=== PATIENT | male | born 1970 | race Caucasian/White ===

== ENCOUNTER 2017-08-26 05:10 | Emergency (ER) | payer BC, OTHER ==
[~2017-08-26] VITALS: Ht 177.8 cm; Wt 65.8 kg
[2017-08-26 05:29] VITALS: BP 216/103
[2017-08-26] MEDS ORDERED: LIDOCAINE 1% / SOD BICARB 8.4% 20 ML VIAL. IJ ONE (05:30)
[2017-08-26] MEDS ORDERED: CLINDAMYCIN HCL 150 MG CAPSULE. PO ONE (05:30)
[2017-08-26] MEDS ORDERED: TETANUS AND DIPHTHERIA TOX/PF 0.5 ML DISP.SYRIN. VAX IM ONE (05:30)
[2017-08-26] MEDS ORDERED: CLIN300C8 PO (05:34)
--- NOTE | 2017-08-26 05:37 | PHYS DOC ---
Past Medical History Past Medical History: No Pertinent History Past Surgical History: No Surgical History Smoking: Cigarettes Social History Narrative: Lives with father Adult General Chief Complaint Chief Complaint: GROIN PAIN HPI HPI Patient is a 47 year old male who presents with tear to his left scrotum. He rolled out of bed and caught his left scrotum on a nail. It tore his scrotal sac. This occurred at 0500 am. Tetanus is not up to date. No significant pain. He has had a recent cold. No fever. No recent travel. No other complaints or injuries. Review of Systems Review of Systems Constitutional: Denies fever or chills Eyes: Denies change in visual acuity, redness, or eye pain HENT: POS nasal congestion but denies sore throat Respiratory: Denies cough or shortness of breath GI: Denies abdominal pain, nausea, vomiting, bloody stools or diarrhea : Denies dysuria or hematuria; POS scrotal injury. Musculoskeletal: Denies back pain or joint pain Integument: Denies rash or skin lesions Neurologic: Denies headache, focal weakness or sensory changes All other systems were reviewed and found to be within normal limits, except as documented in this note. Current Medications Current Medications Current Medications Medications (Trade) Dose Ordered Sig/Lacy Start Time Stop Time Status Last Admin Dose Admin Clindamycin HCl (Cleocin) 300 mg 1X ONCE 08/26/17 05:30 08/26/17 05:31 DC 08/26/17 05:45 300 MG Lidocaine/Sodium Bicarbonate (Buffered Lidocaine 1%) 20 ml 1X ONCE 08/26/17 05:30 08/26/17 05:31 DC 08/26/17 05:45 20 ML Tetanus/ Diphtheria Toxoids (Tenivac Syringe) 0.5 ml ONCE ONCE 08/26/17 05:30 08/26/17 05:31 DC 08/26/17 05:45 0.5 ML Allergies Allergies Allergies Coded Allergies Type Severity Reaction Last Updated Verified No Known Drug Allergies 08/26/17 No Physical Exam Physical Exam Constitutional: Well developed, well nourished, no acute distress, non-toxic appearance. HENT: Normocephalic, atraumatic, bilateral external ears normal, oropharynx moist, no oral exudates, nose normal. Eyes: PERRLA, EOMI, conjunctiva normal, no discharge. Neck: Normal range of motion, no tenderness, supple, no stridor. Cardiovascular:Heart rate regular rhythm, no murmur Lungs & Thorax: Bilateral breath sounds clear to auscultation Abdomen: Bowel sounds normal, soft, no tenderness, no masses, no pulsatile masses. : [employer] present. 3.0 cm laceration to left scrotum. Does not penetrate subcutaneous tissue. Testes intact. No active bleeding. Skin: Warm, dry, no erythema, no rash. Extremities: No tenderness, no cyanosis, no clubbing, ROM intact, no edema. Neurologic: Alert and oriented X 3, normal motor function, normal sensory function, no focal deficits noted. Current Patient Data Vital Signs Vital Signs Date Time Temp Pulse Resp B/P (MAP) Pulse Ox O2 Delivery O2 Flow Rate FiO2 08/26/17 05:29 97.6 96 16 96 Room Air 97.6 Course & Med Decision Making Course & Med Decision Making Evaluated patient. Tetanus updated. This is a superficial laceration with testes intact. Wound repaired. Clindamycin po dosed here with Rx. Absorbable sutures used. Given wound care instructions. Follow up with PCP. I have spoken with the patient and/or caregivers. I have explained the patient' s condition, diagnosis and treatment plan based on the information available to me at this time. I have answered the patient's and/or caregiver's questions and addressed any concerns. The patient and/or caregivers have as good an understanding of the patient's diagnosis, condition and treatment plan as can be expected at this point. The patient's condition is stable and appropriate for discharge from the emergency department. The patient will pursue further outpatient evaluation with the primary care physician or other designated or consulting physician as outlined in the discharge instructions. The patient and/or caregivers are agreeable to this plan of care and follow-up instructions have been explained in detail. The patient and/or caregivers have received these instructions in written format and have expressed an understanding of the discharge instructions. The patient and/or caregivers are aware that any significant change in condition or worsening of symptoms should prompt an immediate return to this or the closest emergency department or a call to 911. Shahana Disclaimer Shahana Disclaimer This electronic medical record was generated, in whole or in part, using a voice recognition dictation system. Departure Departure Impression: Primary Impression: Scrotal laceration Disposition: 01 HOME, SELF-CARE Condition: STABLE Patient Instructions: Laceration Care, Adult Additional Instructions: YOUR SUTURES WERE ABSORBABLE SO WILL DISSOLVE. FINISH THE ANTIBIOTICS. RETURN FOR ANY DRAINAGE OR COMPLICATIONS. Scripts Clindamycin Hcl (CLINDAMYCIN HCL) 300 Mg Capsule 1 CAP PO TID, #21 CAP Prov: JENNIFER CELESTIN MD 08/26/17 PROCEDURE Procedure Laceration repair: Consent obtained. Wound prepped and draped in a sterile manner. 1% lidocaine; plain and buffered used to anesthetize the wound. Wound explored. No foreign body noted. Wound irrigated. Wound repaired with suture. 5- 0 fast absorbing gut used subcuticular. Patient tolerated procedure well. Tetanus updated. Clindamycin dosed po prior to procedure. Problem Qualifiers Primary Impression: Scrotal laceration Encounter type: initial encounter Qualified Codes: S31.31XA - Laceration without foreign body of scrotum and testes, initial encounter JENNIFER CELESTIN MD Aug 26, 2017 05:37
== END 2017-08-26 06:18 | disposition home or self-care (01) ==
LOC: ER 05:19
DX: S31.31XA Laceration without foreign body of scrotum and testes, initial encounter (principal); F17.210 Nicotine dependence, cigarettes, uncomplicated; W45.0XXA Nail entering through skin, initial encounter; Y93.89 Activity, other specified; Y92.89 Other specified places as the place of occurrence of the external cause; Y99.8 Other external cause status
CPT/HCPCS: 12002; 90471; 90714; 99283-25